=== PATIENT | female | born 1980 | race Two or more races ===

== ENCOUNTER 2019-04-20 22:39 | Emergency (ER) | payer OTHER ==
[~2019-04-20] VITALS: Ht 157.5 cm; Wt 99.8 kg
[~2019-04-20 22:39] MED LIST: CEFTIN250 MG PO; KETO10TA2 PO; PREMPRO 0.625-1 EAC1; URIN D.S. TABLE1 TAB PO
[2019-04-21] MEDS ORDERED: TESSALON PERLE100 M1 PO (03:44)
[2019-04-21] MEDS ORDERED: ZITHROMAX500 MG PO (03:44)
== END 2019-04-21 05:17 | disposition home or self-care (01) ==
LOC: ER 22:39
DX: B96.0 Mycoplasma pneumoniae [M. pneumoniae] as the cause of diseases classified elsewhere (principal); B34.9 Viral infection, unspecified

== ENCOUNTER 2019-10-30 19:05 | Emergency (ER) | payer OTHER ==
[~2019-10-30] VITALS: Ht 157.5 cm; Wt 97.5 kg
[~2019-10-30 19:05] MED LIST changes: +TESSALON PERLE100 M1 PO; +ZITHROMAX500 MG PO
[2019-10-30] MEDS ORDERED: CLARITIN10 MG PO (21:04)
[2019-10-30] MEDS ORDERED: TUSNEL LIQUID178 ML PO (21:04)
== END 2019-10-30 22:29 | disposition home or self-care (01) ==
LOC: ER 19:05
DX: B34.9 Viral infection, unspecified (principal)

== ENCOUNTER 2020-07-01 18:27 | Emergency (ER) | payer OTHER ==
[~2020-07-01] VITALS: Ht 157.5 cm; Wt 99.8 kg
[~2020-07-01 18:27] MED LIST changes: +CLARITIN10 MG PO; +TUSNEL LIQUID178 ML PO
[2020-07-01] MEDS ORDERED: INTESTINEX680 M2 PO (21:21)
[2020-07-01] MEDS ORDERED: AMOX1TAB5 PO (21:21)
[2020-07-01] MEDS ORDERED: KETO10TA2 PO (21:21)
[2020-07-01] MEDS ORDERED: BACITRAYCIN PLU28 GM TOP (21:21)
== END 2020-07-01 21:24 | disposition home or self-care (01) ==
LOC: ER 18:27
DX: S61.223A Laceration with foreign body of left middle finger without damage to nail, initial encounter (principal); W26.0XXA Contact with knife, initial encounter; Y93.89 Activity, other specified; Y92.098 Other place in other non-institutional residence as the place of occurrence of the external cause; Y99.8 Other external cause status

== ENCOUNTER 2020-07-08 19:19 | Emergency (ER) | payer OTHER ==
[~2020-07-08] VITALS: Ht 160 cm; Wt 99.8 kg
[~2020-07-08 19:19] MED LIST changes: +AMOX1TAB5 PO; +BACITRAYCIN PLU28 GM TOP; +INTESTINEX680 M2 PO
[2020-07-08] MEDS ORDERED: SKELAXIN800 MG PO (23:24)
[2020-07-08] MEDS ORDERED: VOLTAREN-XR100 MG PO (23:24)
== END 2020-07-08 23:38 ==
LOC: ER 19:19
DX: S20.212A Contusion of left front wall of thorax, initial encounter (principal); S20.211A Contusion of right front wall of thorax, initial encounter; S06.2X0A Diffuse traumatic brain injury without loss of consciousness, initial encounter; W01.0XXA Fall on same level from slipping, tripping and stumbling without subsequent striking against object, initial encounter; Y93.89 Activity, other specified; Y92.838 Other recreation area as the place of occurrence of the external cause; Y99.8 Other external cause status

== ENCOUNTER 2022-05-23 11:48 | Emergency (ER) | payer OTHER ==
[~2022-05-23] VITALS: Ht 157.5 cm; Wt 99.8 kg
[~2022-05-23 11:48] MED LIST changes: +SKELAXIN800 MG PO; +VOLTAREN-XR100 MG PO
[2022-05-23] MEDS ORDERED: HORMONE PROTEC1 EACH PO (12:08)
[2022-05-23] MEDS ORDERED: PROBIOTIC1 EAC4 PO (12:08)
== END 2022-05-23 16:35 ==
LOC: ER 11:48
DX: R07.9 Chest pain, unspecified (principal); U07.1 COVID-19

== ENCOUNTER 2023-06-08 18:44 | Emergency (ER) | payer OTHER ==
[~2023-06-08] VITALS: Ht 162.6 cm; Wt 77.1 kg
[~2023-06-08 18:44] MED LIST changes: +HORMONE PROTEC1 EACH PO; +PROBIOTIC1 EAC4 PO
== END 2023-06-08 23:36 | disposition home or self-care (01) ==
LOC: ER 18:44
PROVIDERS: General Practice
DX: N39.0 Urinary tract infection, site not specified (principal)

== ENCOUNTER 2025-05-29 19:38 | Emergency (ER) | payer OTHER ==
[~2025-05-29] VITALS: Ht 157.5 cm; Wt 95.3 kg
== END 2025-05-30 10:12 | disposition left against medical advice (07) ==
LOC: ER 19:38
DX: Z53.21 Procedure and treatment not carried out due to patient leaving prior to being seen by health care provider (principal)